=== PATIENT | male | born 1970 | race Caucasian/White ===

== ENCOUNTER 2021-06-25 06:56 | Emergency (ER) | payer OTHER ==
[~2021-06-25] VITALS: Ht 175.3 cm; Wt 83.0 kg
[2021-06-25 07:03] VITALS: BP 155/102
[2021-06-25] MEDS ORDERED: FLUORESCEIN 1MG EYE STRIP. ONE (07:22)
[2021-06-25] MEDS ORDERED: TETRACAINE 0.5% OPHTH SOLUTION 4ML BOTTLE. ONE (07:23)
[2021-06-25] MEDS ORDERED: FLUORESCEIN 1MG EYE STRIP. OS ONE (07:30)
[2021-06-25] MEDS ORDERED: TETRACAINE 0.5% OPHTH SOLUTION 4ML BOTTLE. OS ONE (07:30)
--- NOTE | 2021-06-25 07:35 | PHYS DOC ---
Past History Past Surgical History: Other Additional Past Surgical Histo: knee surgies x4 R leg General Adult EDM: Chief Complaint: EYE PROBLEMS HPI: HPI: 50-year-old male presents with left eye irritation. The patient thinks he might of gotten something in his left eye yesterday while he was mowing the grass. He was wearing protective eyewear but thinks something might get around. He took a shower afterwards and had some mild irritation. Later in the evening he rubbed his eye a little bit and it became more uncomfortable. He attempted to flush with water 10 avail. It is still quite uncomfortable and he woke up this mor uche so he came into the emergency room. Patient denies change in vision. He has no other complaints this time. Review of Systems: Review of Systems: Constitutional: Denies fever or chills Eyes: Foreign body left eye HENT: Denies nasal congestion or sore throat Respiratory: Denies cough or shortness of breath Cardiovascular: Denies chest pain or edema GI: Denies abdominal pain, nausea, vomiting, bloody stools or diarrhea : Denies dysuria Musculoskeletal: Denies back pain or joint pain Integument: Denies rash Neurologic: Denies headache, focal weakness or sensory changes Endocrine: Denies polyuria or polydipsia Lymphatic: Denies swollen glands Psychiatric: Denies depression or anxiety Current Medications: Current Meds: Current Medications Medications (Trade) Dose Ordered Sig/Ange Start Time Stop Time Status Last Admin Dose Admin Fluorescein Sodium (Ful-Yvonne 1mg) 1 strip 1X ONCE 06/25/21 07:30 06/25/21 07:31 UNV Tetracaine HCl (Tetracaine) 1 drop 1X ONCE 06/25/21 07:30 06/25/21 07:31 UNV Physical Exam: PE: Constitutional: Well developed, well nourished, no acute distress, non-toxic appearance. [] HENT: Normocephalic, atraumatic, bilateral external ears normal, oropharynx moist, no oral exudates, nose normal. [] Eyes: PERRLA, EOMI, conjunctiva left eye erythematous, clear, watery discharge. [] Neck: Normal range of motion, no tenderness, supple, no stridor. [] Cardiovascular: Heart rate regular rhythm, no murmur [] Lungs & Thorax: Bilateral breath sounds clear to auscultation [] Abdomen: Bowel sounds normal, soft, no tenderness, no masses, no pulsatile masses. [] Skin: Warm, dry, no erythema, no rash. [] Back: No tenderness, no CVA tenderness. [] Extremities: No tenderness, no cyanosis, no clubbing, ROM intact, no edema. [] Neurologic: Alert and oriented X 3, normal motor function, normal sensory function, no focal deficits noted. [] Psychologic: Affect normal, judgement normal, mood normal. [] Current Patient Data: Vital Signs: Vital Signs Date Time Temp Pulse Resp B/P (MAP) Pulse Ox O2 Delivery O2 Flow Rate FiO2 06/25/21 07:03 98.2 78 18 155/102 (119) 98 Room Air EKG: EKG: [] Radiology/Procedures: Radiology/Procedures: [] Heart Score: C/O Chest Pain: N/A Risk Factors: Risk Factors: DM, Current or recent (<one month) smoker, HTN, HLP, family history of CAD, obesity. Risk Scores: Score 0 - 3: 2.5% MACE over next 6 weeks - Discharge Home Score 4 - 6: 20.3% MACE over next 6 weeks - Admit for Clinical Observation Score 7 - 10: 72.7% MACE over next 6 weeks - Early Invasive Strategies Course & Med Decision Making: Course & Med Decision Making Pertinent Labs and Imaging studies reviewed. (See chart for details) I performed a fluorescein and Fernandez lamp exam. I numbed the patient's eye with 2 drops of tetracaine ophthalmic drops. I then evaluated the eye and inverted his upper eyelid. A small black foreign body was found which I removed with a s terile Q-tip. I observed his eye with a Fernandez lamp and there was no significant uptake over the cornea or conjunctiva. Antibiotic ointment is not indicated. The patient is stable for discharge at this time. [] Dragon Disclaimer: Pete Disclaimer: This electronic medical record was generated, in whole or in part, using a voice recognition dictation system. Departure Departure: Impression: Primary Impression: Foreign body of left eye Qualified Codes: T15.92XA - Foreign body on external eye, part unspecified, left eye, initial encounter Disposition: HOME / SELF CARE / HOMELESS Condition: IMPROVED Referrals: PCP,NO (PCP) Patient Instructions: Eye - Foreign Body, [id number] CHERRY ANGELO DO June 25, 2021 07:35
== END 2021-06-25 07:38 | disposition home or self-care (01) ==
LOC: ER 06:56
DX: T15.92XA Foreign body on external eye, part unspecified, left eye, initial encounter (principal); X58.XXXA Exposure to other specified factors, initial encounter; Y93.89 Activity, other specified; Y92.89 Other specified places as the place of occurrence of the external cause; Y99.8 Other external cause status
CPT/HCPCS: 65205; 99284